=== PATIENT | male | born 1955 | race Caucasian/White ===

== ENCOUNTER 2017-07-23 09:24 | Emergency (ER) | payer OTHER ==
[~2017-07-23] VITALS: Ht 180.3 cm; Wt 75.0 kg
[2017-07-23 09:25] VITALS: BP 116/91; PULSE 111; RESP 18; TEMP 98.6; O2SAT 94
[2017-07-23] MEDS ORDERED: BLOOD PRESSURE PO (09:36)
[2017-07-23] MEDS ORDERED: SODIUM CHLOR 0.9% 1000 ML INJ 1,000 ML IV SCH (09:55)
[2017-07-23] MEDS ORDERED: SODIUM CHLORIDE 0.9% FLUSH 10 ML FLUSH IV FLUSH PRN (10:00)
[2017-07-23] MEDS ORDERED: ONDANSETRON HCL 4 MG/2 ML VIAL IVP ONE ×2 (10:00→12:00)
--- NOTE | 2017-07-23 10:05 | PD ---
HPI Chief Complaint: Alcohol/Drug Intoxication Time Seen by Provider: 09:44 Travel History International Travel<30 days: No Contact w/Intl Traveler<30days: No Traveled to known affect area: No History of Present Illness HPI This patient called the ambulance and was brought to the ER because he has been drinking heavily for 10 days and wants to stop drinking. He has some nausea. No vomiting or diarrhea or fever or abdominal pain. He is visiting from [place]. He says he will be in town for 2 more weeks. Denies suicidal thoughts. He denies illicit drug use. No history of IV drug use. He has been alcohol binging. He reports having 3 this morning. Symptom severity is moderate. No alleviating factors. Symptoms exacerbated by stress from fighting with his relatives. PFSH Past Medical History Medical History: Denies Significant Hx Hx Anticoagulant Therapy: No Cardiovascular Problems: Yes (HTN) Chemotherapy: No Cerebrovascular Accident: No Diabetes: No Respiratory: No Tetanus Vaccination: Unknown Influenza Vaccination: Yes Past Surgical History Hysterectomy: No Social History Alcohol Use: Yes (10 [employer] DAILY) Tobacco Use: Yes (1PPD) Substance Use: No Allergies-Medications (Allergen,Severity, Reaction): Coded Allergies: No Known Drug Allergies (Verified Allergy, Unknown, 07/23/17) Reported Meds & Prescriptions Reported Meds & Active Scripts Active Zofran (Ondansetron HCl) 4 Mg Tab 4 Mg PO Q6HR PRN Reported [Blood Pressure] Unknown Dose PO DAILY Review of Systems General / Constitutional: No: Fever Eyes: No: Visual changes HENT: No: Headaches Cardiovascular: No: Chest Pain or Discomfort Respiratory: No: Shortness of Breath Gastrointestinal: Positive: Nausea, No: Abdominal Pain Genitourinary: No: Dysuria Musculoskeletal: No: Pain Skin: No Rash Neurologic: No: Weakness Psychiatric: Positive: Anxiety, Substance Abuse, No: Depression Endocrine: No: Polydipsia Hematologic/Lymphatic: No: Easy Bruising Physical Exam Narrative GENERAL: Well-nourished, well-developed patient in no apparent distress. SKIN: Focused skin assessment reveals no rash and nodules. Skin is Warm and dry. HEAD: Atraumatic. Normocephalic. EYES: Pupils equal and round. No scleral icterus. No injection or drainage. ENT: No nasal bleeding or discharge. Mucous membranes pink and moist. NECK: Trachea midline. No JVD. CARDIOVASCULAR: Regular rate and rhythm. No murmur appreciated. RESPIRATORY: No accessory muscle use. Clear to auscultation. Breath sounds equal bilaterally. GASTROINTESTINAL: Abdomen soft, non-tender, nondistended. Hepatic and splenic margins not palpable. MUSCULOSKELETAL: No obvious deformities. No clubbing. No cyanosis. No edema. NEUROLOGICAL: Awake and alert. No obvious cranial nerve deficits. Motor grossly within normal limits. Normal speech. PSYCHIATRIC: Appropriate mood and affect; insight and judgment poor . Data Data Last Documented VS Vital Signs Date Time Temp Pulse Resp B/P (MAP) Pulse Ox O2 Delivery O2 Flow Rate FiO2 07/23/17 09:37 Room Air 07/23/17 09:25 98.6 111 18 116/91 (99) 94 Orders Orders Basic Metabolic Panel (Bmp) (07/23/17 09:55) Complete Blood Count With Diff (07/23/17 09:55) Iv Access Insert/Monitor (07/23/17 09:55) Ondansetron Inj (Zofran Inj) (07/23/17 10:00) Sodium Chlor 0.9% 1000 Ml Inj (Ns 1000 M (07/23/17 09:55) Sodium Chloride 0.9% Flush (Ns Flush) (07/23/17 10:00) Alcohol (Ethanol) (07/23/17 09:55) Ondansetron Inj (Zofran Inj) (07/23/17 12:00) Labs Laboratory Tests Test 07/23/17 10:20 07/23/17 11:10 Blood Urea Nitrogen 8 MG/DL Creatinine 0.75 MG/DL Random Glucose 82 MG/DL Calcium Level 9.0 MG/DL Sodium Level 136 MEQ/L Potassium Level 4.1 MEQ/L Chloride Level 101 MEQ/L Carbon Dioxide Level 21.9 MEQ/L Anion Gap 13 MEQ/L Estimat Glomerular Filtration Rate 106 ML/MIN Ethyl Alcohol Level 208 MG/DL White Blood Count 6.6 TH/MM3 Red Blood Count 4.82 MIL/MM3 Hemoglobin 14.9 GM/DL Hematocrit 44.1 % Mean Corpuscular Volume 91.4 FL Mean Corpuscular Hemoglobin 30.9 PG Mean Corpuscular Hemoglobin Concent 33.8 % Red Cell Distribution Width 13.7 % Platelet Count 206 TH/MM3 Mean Platelet Volume 6.1 FL Neutrophils (%) (Auto) 81.0 % Lymphocytes (%) (Auto) 9.9 % Monocytes (%) (Auto) 7.9 % Eosinophils (%) (Auto) 0.7 % Basophils (%) (Auto) 0.5 % Neutrophils # (Auto) 5.4 TH/MM3 Lymphocytes # (Auto) 0.7 TH/MM3 Monocytes # (Auto) 0.5 TH/MM3 Eosinophils # (Auto) 0.0 TH/MM3 Basophils # (Auto) 0.0 TH/MM3 CBC Comment DIFF FINAL Differential Comment MDM Medical Decision Making Medical Screen Exam Complete: Yes Emergency Medical Condition: Yes Medical Record Reviewed: Yes Differential Diagnosis Alcohol intoxication, alcoholism, gastroenteritis, electrolyte abnormality Narrative Course I have reviewed the patient's electronic medical record. IV placed I gave him IV Zofran and a liter of normal saline IV Labs sent CBC shows no leukocytosis Metabolic studies reasonably normal Alcohol level is 208 I gave him a second dose of Zofran and prescription for same Recommend [facility] outpatient alcohol rehab services Diagnosis Primary Impression: Alcohol intoxication Qualified Codes: F10.929 - Alcohol use, unspecified with intoxication, unspecified Additional Impression: Nausea and vomiting Qualified Codes: R11.2 - Nausea with vomiting, unspecified Additional Instructions: The patient was advised to follow up with their physician and return if they worsen. Recommend [facility] outpatient alcohol rehab services Intake visit can be done at [address] [place] [address], Tuesday through Tuesday 9-5 Med/Other Pt SpecificInfo: Prescription(s) given Scripts Ondansetron (Zofran) 4 Mg Tab 4 MG PO Q6HR Y for NAUSEA OR VOMITING, #12 TAB 0 Refills Prov: Dion Jacobo MD 07/23/17 Disposition: 01 DISCHARGE HOME Condition: Stable Dion Jacobo MD Jul 23, 2017 10:05
[2017-07-23 10:53] LABS: BICARBONATE 21.9 MEQ/L (21.0-32.0)
[2017-07-23 10:55] LABS: CREATININE 0.75 MG/DL (0.60-1.30)
[2017-07-23 11:14] LABS: AUTOMATED NEUTROPHIL # 5.4 TH/MM3 (1.8-7.7); BASOPHIL % 0.5 % (0.0-2.0); EOSINOPHIL % 0.7 % (0.0-4.0); HEMATOCRIT 44.1 % (39.0-51.0); HEMOGLOBIN 14.9 GM/DL (13.0-17.0); LYMPH % 9.9 % (9.0-44.0); LYMPHOCYTE # 0.7 TH/MM3 (1.0-4.8); MEAN CELL VOLUME 91.4 FL (80.0-100.0); MEAN CORPUSCULAR HEMOGLOBIN 30.9 PG (27.0-34.0); MEAN CORPUSCULAR HGB CONC 33.8 % (32.0-36.0); MEAN PLATELET VOLUME 6.1 FL (7.0-11.0); MONO % 7.9 % (0.0-8.0); MONOCYTE # 0.5 TH/MM3 (0-0.9); PLATELET COUNT 206 TH/MM3 (150-450); RED BLOOD COUNT 4.82 MIL/MM3 (4.50-5.90); RED CELL DISTRIBUTION WIDTH 13.7 % (11.6-17.2); WHITE BLOOD COUNT 6.6 TH/MM3 (4.0-11.0)
[2017-07-23] MEDS ORDERED: ZOFR4TAB PO (11:57)
[2017-07-23 12:35] VITALS: BP 131/61
== END 2017-07-23 12:40 | disposition home or self-care (01) ==
LOC: PHED 09:24
DX: F10.129 Alcohol abuse with intoxication, unspecified (principal); Y90.7 Blood alcohol level of 200-239 mg/100 ml; I10 Essential (primary) hypertension; F17.210 Nicotine dependence, cigarettes, uncomplicated; Z79.899 Other long term (current) drug therapy
CPT/HCPCS: 80048; 80307; 85025; 96361; 96374; 96376; 99284; J2405; J7030